=== PATIENT | female | born 1965 | race Caucasian/White ===

== ENCOUNTER → 2017-06-26 | Outpatient (REF) | payer BC, MEDICARE ==
[~2017-06-26] MED LIST: ALEVE OR; ALLE25CA OR; AMBI10TA; AMIT100T OR; AMIT10TA2; AMIT25TA2 OR; BACT400T; CLIN150C OR; CLON0.5T; DILA2TAB; FIORICET OR; FLAG500T OR; IBUP800T; IMIT6INJ IJ; LASI20TA OR; LOPERAMIDE HCL PO; MAXA10TA17 SL; MELOPOW OR; MELOPOW PO; MOTRIN PO; NEUR300C; NEUR300C OR; OXYC15TA50; SAVELLA; SAVELLA OR; SKEL800T5; SOMA250T OR; SOMA350T; THERGRAN; TOPI100T OR; TOPI200T OR; TOPI50TA; TOPI50TA OR; TOPOMAX OR; TYLENOL PO; VIT D 2000 PO; VITAMIN D OR; VITAMIN D50000 UNT; VOLT1GEL EX; ZIPSOR; savella OR
== END ==
LOC: M SMT 17:10
PROVIDERS: ATTEND Nurse Practitioner Women's Health
DX: R31.0 Gross hematuria (principal)

== ENCOUNTER → 2017-07-27 | Outpatient (REF) | payer BC, MEDICARE | LOC: M SMT 16:49 | PROVIDERS: ATTEND Nurse Practitioner Women's Health | DX: N39.0 Urinary tract infection, site not specified (principal) ==

== ENCOUNTER → 2017-08-09 | Outpatient (REF) | payer MEDICARE, BC | LOC: M SMT 17:04 | DX: N39.0 Urinary tract infection, site not specified (principal) | CPT/HCPCS: 81001 ==

== ENCOUNTER → 2017-11-28 | Outpatient (CLI) | payer MEDICARE, BC | LOC: M RAD 12:57 | DX: M79.672 Pain in left foot (principal) | CPT/HCPCS: 73700 ==

== ENCOUNTER → 2018-01-24 | Outpatient (CLI) | payer MEDICARE, BC | LOC: M RAD 15:25 | DX: M51.26 Other intervertebral disc displacement, lumbar region (principal); M51.06 Intervertebral disc disorders with myelopathy, lumbar region | CPT/HCPCS: 72131 ==

== ENCOUNTER 2018-04-15 20:32 | Emergency (ER) | payer MEDICARE, BC | END 2018-04-15 22:50 | disposition home or self-care (01) | LOC: M ED 20:32 | DX: M25.532 Pain in left wrist (principal); W01.10XA Fall on same level from slipping, tripping and stumbling with subsequent striking against unspecified object, initial encounter; Y92.099 Unspecified place in other non-institutional residence as the place of occurrence of the external cause; Y93.9 Activity, unspecified; Y99.9 Unspecified external cause status; M79.7 Fibromyalgia; Z79.899 Other long term (current) drug therapy; Z88.5 Allergy status to narcotic agent; Z88.1 Allergy status to other antibiotic agents; Z88.8 Allergy status to other drugs, medicaments and biological substances; Z91.011 Allergy to milk products | CPT/HCPCS: 73110 ==

== ENCOUNTER → 2018-05-11 | Outpatient (CLI) | payer MEDICARE, BC | LOC: M LRY 17:45 | DX: R93.8 Abnormal findings on diagnostic imaging of other specified body structures (principal); S69.91XA Unspecified injury of right wrist, hand and finger(s), initial encounter | CPT/HCPCS: 73110; G0463 ==

== ENCOUNTER → 2018-07-25 | Outpatient (CLI) | payer MEDICARE, BC | LOC: M RAD 11:50 | DX: T84.82XD Fibrosis due to internal orthopedic prosthetic devices, implants and grafts, subsequent encounter (principal) | CPT/HCPCS: 73700 ==

== ENCOUNTER 2018-07-26 05:46 | Day surgery (SDC) | payer MEDICARE, BC ==
[2018-07-26] MEDS ORDERED: dexameTHASONE 10 MG/1 ML VIAL PRES.FREE (J1100) (05:47)
[2018-07-26] MEDS ORDERED: LIDOCAINE 1% MDV 20ML VIAL (05:47)
[2018-07-26] MEDS ORDERED: ROPIvacaine 0.5% 30 ML INJECTION (J2795 PER 1MG) (05:47)
[2018-07-26] MEDS ORDERED: LR 1,000 ML IV ×3 (06:00→13:15)
[2018-07-26] MEDS ORDERED: LIDOCAINE 1% MDV 20ML VIAL SQ (06:00)
[2018-07-26] MEDS ORDERED: MIDAZOLAM INJ 2 MG/2 ML VIAL (J2250) As Ordered ×2 (07:02→08:18)
[2018-07-26] MEDS ORDERED: fentaNYL 100 MCG/2 ML INJECTION (J3010) As Ordered ×2 (07:02→12:52)
[2018-07-26] MEDS: MIDAZOLAM INJ 2 MG/2 ML VIAL (J2250) IV (07:22)
[2018-07-26] MEDS: fentaNYL 100 MCG/2 ML INJECTION (J3010) IV ×5 (07:23→13:10)
[2018-07-26] MEDS ORDERED: LIDOCAINE 2% INJ 100 MG/5 ML SDV (FOR ANES.) As Ordered (08:18)
[2018-07-26] MEDS ORDERED: fentaNYL 250 MCG/5 ML INJECTION (J3010) As Ordered (08:18)
[2018-07-26] MEDS ORDERED: PROPOFOL 200 MG/20 ML VIAL As Ordered ×2 (08:18→09:48)
[2018-07-26] MEDS ORDERED: ROCURONIUM BROMIDE 50 MG/5 ML VIAL As Ordered ×2 (08:18→09:43)
[2018-07-26] MEDS ORDERED: ONDANSETRON 4MG/2ML VIAL (J2405) As Ordered (08:18)
[2018-07-26] MEDS ORDERED: dexameTHASONE 4 MG/ML 1ML VIAL (J1100) As Ordered (08:18)
[2018-07-26] MEDS ORDERED: GLYCOPYRROLATE INJ 0.2 MG/ML 2 ML VIAL As Ordered ×2 (08:24)
[2018-07-26] MEDS ORDERED: NEOSTIGMINE 10 MG/10 ML VIAL (J2710) As Ordered (08:24)
[2018-07-26] MEDS ORDERED: HYDROmorphone HCL 2 MG/ML 1ML VIAL (J1170) As Ordered (09:39)
[2018-07-26] MEDS ORDERED: LABETALOL HCL 100 MG/20 ML VIAL As Ordered (09:57)
[2018-07-26] MEDS ORDERED: hydrALAZINE INJ 20 MG/ML VIAL As Ordered (10:14)
[2018-07-26] MEDS ORDERED: HYDROMORPHONE HCL 0.5 MG/ 0.5 ML SYRINGE (J1170 PER 1) IV (12:45)
[2018-07-26] MEDS: ONDANSETRON 4MG/2ML VIAL (J2405) IV (12:47)
[2018-07-26] MEDS: PERCOCET 5MG/325MG TAB PO ×2 (13:07→14:15)
[2018-07-26] MEDS ORDERED: oxyCODONE 5MG TAB PO ×2 (13:15)
[2018-07-26] MEDS ORDERED: PERCOCET 5MG/325MG TAB As Ordered (14:14)
== END 2018-07-26 15:25 | disposition home or self-care (01) ==
LOC: M SDC 05:46
DX: T84.84XA Pain due to internal orthopedic prosthetic devices, implants and grafts, initial encounter (principal); M20.12 Hallux valgus (acquired), left foot; M19.072 Primary osteoarthritis, left ankle and foot; S92.355K Nondisplaced fracture of fifth metatarsal bone, left foot, subsequent encounter for fracture with nonunion; R53.82 Chronic fatigue, unspecified; M79.7 Fibromyalgia; F41.9 Anxiety disorder, unspecified; F32.9 Major depressive disorder, single episode, unspecified; G43.909 Migraine, unspecified, not intractable, without status migrainosus; G47.33 Obstructive sleep apnea (adult) (pediatric); K21.9 Gastro-esophageal reflux disease without esophagitis; E66.01 Morbid (severe) obesity due to excess calories; Z68.35 Body mass index [BMI] 35.0-35.9, adult; Z88.5 Allergy status to narcotic agent; Z88.8 Allergy status to other drugs, medicaments and biological substances; Z91.011 Allergy to milk products; Z79.899 Other long term (current) drug therapy; Z90.710 Acquired absence of both cervix and uterus; Z85.038 Personal history of other malignant neoplasm of large intestine; Z92.3 Personal history of irradiation; Z98.84 Bariatric surgery status
CPT/HCPCS: 28750

== ENCOUNTER → 2018-12-18 | Outpatient (REF) | payer MEDICARE, BC ==
[~2018-12-18] MED LIST changes: +ACET-683 PO; +AMIT100TA PO; +AMIT25TA PO; +ASPI1TAB PO; +BACL1TAB9 PO; +ESTR625TA PO; +FERR325T3 PO; +HYDR-3363 PO; +IBUP80TA PO; +LASI20TA3 PO; +MORP-38 PO; +MORP15TA2 PO; +MULTCAP PO; +OMEP40CA2 PO; +ROPI1TAB PO; +VITA100072 PO; +VITA500046 PO
[2018-12-18 18:00] LABS: BASO % 0.6 % (0.0-1.0); EOS # 0.2 10^3/uL (0.0-0.50); EOS % 3.7 % (0.0-3.0); HEMATOCRIT 39.8 % (36.0-47.0); HEMOGLOBIN 13.1 g/dl (12.0-15.5); LYMPH # 1.8 10^3/uL (1.5-4.5); LYMPH % 27.7 % (24.0-44.0); MEAN CORPUSCULAR HEMOGLOBIN 30.8 pg (27.0-33.0); MEAN CORPUSCULAR HGB CONC 32.9 g/dl (32.0-36.5); MEAN CORPUSCULAR VOLUME 93.4 fl (80.0-96.0); MONO # 0.5 10^3/uL (0.0-0.8); MONO % 7.3 % (0.0-5.0); NEUTROPHILS # 3.9 10^3/uL (1.8-7.7); NEUTROPHILS % 60.4 % (36.0-66.0); PLATELET COUNT, AUTOMATED 266 10^3/uL (150-450); RED BLOOD COUNT 4.26 10^6/uL (4.00-5.40); WHITE BLOOD COUNT 6.5 10^3/uL (4.0-10.0)
[2018-12-18 18:33] LABS: ALBUMIN 4.1 GM/DL (3.2-5.2); BILIRUBIN,TOTAL 0.5 MG/DL (0.2-1.0); CALCIUM LEVEL 8.5 MG/DL (8.5-10.1); CHOLESTEROL RISK RATIO 1.867 (<5); CREATININE FOR GFR 1.07 MG/DL (0.55-1.30); FREE T4 0.89 NG/DL (0.76-1.46); GLOMERULAR FILTRATION RATE 57.6 (>51); POTASSIUM SERUM 4.8 MEQ/L (3.5-5.1); THYROID STIMULATING HORMONE 1.12 uIU/ML (0.358-3.740); TOTAL PROTEIN 7.4 GM/DL (6.4-8.2)
== END ==
LOC: M SFHCCLAY 11:34
PROVIDERS: ATTEND Nurse Practitioner Family
DX: N31.2 Flaccid neuropathic bladder, not elsewhere classified (principal); F32.5 Major depressive disorder, single episode, in full remission; G89.4 Chronic pain syndrome; E66.9 Obesity, unspecified; Z68.35 Body mass index [BMI] 35.0-35.9, adult
CPT/HCPCS: 80053; 80061; 84439; 84443; 85025; G0463

== ENCOUNTER → 2019-01-18 | Outpatient (CLI) | payer MEDICARE, BC ==
[~2019-01-18] MED LIST changes: -ASPI1TAB PO; +ASPI81TA26 PO; +VITA100018 PO; -VITA100072 PO
--- NOTE | 2019-01-21 21:30 | SLEEPCENT ---
DATE OF PROCEDURE: 01/18/2019 Ordered by: ARIANE Martinez Nocturnal polysomnography was performed for the titration of pressure therapy in this patient with obstructive sleep apnea syndrome. Apnea-hypopnea index 7.3. For testing, the patient was fit with a [employer]Med AirFit N20 nasal mask of medium size, 4 cm of water pressure were applied to the circuit and the lights were extinguished. 7 hours and 48 minutes of data were reviewed. There were 376 minutes of sleep identified. Sleep latency was prolonged at 60 minutes. Rapid eye movement (REM) latency was normal at 96 minutes. Sleep architecture was good with four REM cycles and overall sleep efficiency of 81.4%. The electrocardiogram showed a sinus rhythm with an average heart rate of 68 beats per minute. EEG showed normal waveforms for awake and sleep. Respiratory events were fully palliated with C-PAP at a pressure of +5. Some limb activity was noted. Limb movement arousal index was 9.4. IMPRESSION Obstructive sleep apnea syndrome (G47.33) RECOMMENDATIONS Nightly use of pressure therapy, 5 cm of water.
== END ==
LOC: M SLEEP 20:00
PROVIDERS: ATTEND Nurse Practitioner Family
DX: G47.33 Obstructive sleep apnea (adult) (pediatric) (principal)